=== PATIENT | male | born 1980 | race Two or more races ===

== ENCOUNTER 2017-11-25 18:03 | Emergency (ER) | payer MEDICAID ==
[~2017-11-25] VITALS: Ht 182.9 cm; Wt 117.9 kg
[2017-11-25] MEDS ORDERED: XANAX2 MG ORAL (18:18)
[2017-11-25 18:34] VITALS: BP 112/77
[2017-11-25 18:35] VITALS: BP 112/77
--- NOTE | 2017-11-25 18:46 | Emergency Room Report ---
History of Present Illness General Chief Complaint: Medication Refill Source: Patient Present Illness HPI 37 y.o. M with hx of anxiety, here requesting refill of xanax. pt reports he has been taking xanax for 2 yrs, prescribed by his PA, taking 3-4 and sometimes 5 pills per day. denies SI, HI, changes of appetite. c/o anxiety, but denies palpitation, sob, cp, dizziness, vision changes. last took xanax yesterdy reports "nothing else works." cures was done and he had collected 21 xanax on Nov 15 2017, and 15 xanax on Nov 16 2017. Allergies: Coded Allergies: No Known Allergies (Unverified , 11/25/17) Patient History Past Medical History: see triage record Past Surgical History: unable to obtain Pertinent Family History: unable to obtain Social History: Reports: drug use Reviewed Nursing Documentation: PMH: Agreed; PSxH: Agreed Nursing Documentation-PMH Past Medical History: No History, Except For Hx Cardiac Problems: No Hx Hypertension: No Hx Pacemaker: No Hx Asthma: No Hx COPD: No Hx Diabetes: No Hx Cancer: No Hx Gastrointestinal Problems: No Hx Dialysis: No History Of Psychiatric Problem: Yes - Anxiety Hx Neurological Problems: No Hx Cerebrovascular Accident: No Hx Seizures: No Review of Systems All Other Systems: negative except mentioned in HPI Physical Exam Vital Signs Date Time Temp Pulse Resp B/P (MAP) Pulse Ox O2 Delivery O2 Flow Rate FiO2 11/25/17 18:15 98.1 100 18 112/77 99 Room Air 98.1 Sp02 EP Interpretation: reviewed General Appearance: normal inspection, well appearing, alert, GCS 15, non-toxic Head: normocephalic Eyes: bilateral eye normal inspection, bilateral eye PERRL ENT: normal ENT inspection Neck: normal inspection, full range of motion Respiratory: normal inspection, chest non-tender, lungs clear, no rhonchi, no retraction, no accessory muscle use, no wheezing Cardiovascular #1: normal inspection, normal peripheral pulses, regular rate, rhythm, no edema, no gallop, no JVD, no murmur, normal capillary refill Gastrointestinal: normal inspection, normal bowel sounds, non tender Rectal: deferred Genitourinary: deferred Musculoskeletal: normal inspection Neurologic: normal inspection, alert, oriented x3, responsive Psychiatric: anxious - drug seeking behavior Skin: normal inspection, normal color, no rash, warm/dry Lymphatic: normal inspection, no adenopathy Medical Decision Making PA Attestation all discussions, dx, PE, orders, tx were reviewed and approved by my supervising physician Dr. Barlow Reaction to Intervention: No change Diagnostic Impression: Primary Impression: Drug-seeking behavior Additional Impression: Benzodiazepine abuse ER Course 37 y.o. M with hx of anxiety, here requesting refill of xanax. pt reports he has been taking xanax for 2 yrs, prescribed by his PA, taking 3-4 and sometimes 5 pills per day. denies SI, HI, changes of appetite. c/o anxiety, but denies palpitation, sob, cp, dizziness, vision changes. last took xanax yesterdy reports "nothing else works." cures was done and he had collected 21 xanax on Nov 15 2017, and 15 xanax on Nov 16 2017. Ddx considered but are not limited to drug seeking behavior, bezodiazepam withdrawal Vital signs: are WNL, pt. is afebrile H&PE are most consistent with drug seeking behavior ORDERS: none required at this time, the diagnosis is clinical ED INTERVENTIONS: None required at this time. pt refused EKG, assessment for over use of benzo once was told he will not be given any refills on xanax DISCHARGE: At this time pt. is stable for d/c to home. Will provide printed patient care instructions, and any necessary prescriptions. Care plan and follow up instructions have been discussed with the patient prior to discharge. Last Vital Signs Date Time Temp Pulse Resp B/P (MAP) Pulse Ox O2 Delivery O2 Flow Rate FiO2 11/25/17 18:34 98.1 100 18 112/77 99 Room Air 98.1 Status: unchanged Disposition: HOME, SELF-CARE Condition: Stable Additional Instructions: pt walked out once found out no refills will be given on Xanax. pt was ofered proranolol but declined. at time to dc, pt was asked multiple times if he has SI /HI and he denied both. pt to f/u with pcp for referral to psych for better mgmt of anxiety and benzo is not the daily tx of anxiety Bibi Tellez November 25, 2017 18:46
== END 2017-11-25 18:39 | disposition home or self-care (01) ==
LOC: EMR 18:35
DX: Z76.5 Malingerer [conscious simulation] (principal); F13.10 Sedative, hypnotic or anxiolytic abuse, uncomplicated
CPT/HCPCS: 99282